=== PATIENT | female | born 1945 | race Caucasian/White ===

== ENCOUNTER 2017-01-22 22:29 | Emergency (ER) | payer OTHER ==
[~2017-01-22] VITALS: Ht 162.6 cm; Wt 65.8 kg
[2017-01-22] MEDS ORDERED: LEVOTHYROXINE25 MCG PO (22:58)
--- NOTE | 2017-01-22 23:07 | ED GI/GU/ABDOMINAL COMPLAINT ---
History of Present Illness General Chief Complaint: Abdominal Pain/Flank Pain Stated Complaint: RIGHT SIDED ABD PAIN Source: patient Exam Limitations: no limitations Vital Signs & Intake/Output Vital Signs & Intake/Output Vital Signs Date Time Temp Pulse Resp B/P Pulse O2 O2 Flow FiO2 Ox Delivery Rate 01/22 2242 98.1 54 18 180/81 98 Room Air ED Intake and Output 01/23 0000 01/22 1200 Intake Total Output Total Balance Patient 145 lb Weight Allergies Coded Allergies: No Known Allergies (01/22/17) Triage Note: RECEIVED 71 YO FEMALE C/O RIGHT LOWER BACK/FLANK AREA PAIN, STARTED 9:30 PM TONITE. VOMITED X 4 SINCE ONSET OF PAIN, DRY HEAVES NOW. Triage Nurses Notes Reviewed? yes ? N Is pt currently ? No HPI: This patient is a 71-year-old who presented to the emergency department accompanied by her for evaluation of right flank pain. The patient reported that the pain began abruptly at 9:30 this evening. She reported a sharp and nonradiating. The pain is been constant since onset with no palliative or provoking factors. The patient denied any abdominal pain. She reported that she vomited multiple times with associated nausea. She denied a history of any kidney stones. She denied any urinary burning, urgency, frequency, or blood in the urine. No constipation or diarrhea. She denied any fevers, chills, chest pain, or difficulty breathing. (KACY MCMILLAN,SCOT) Reconcile Medications Ibuprofen 600 MG TABLET 1 TAB PO TID PRN pain with food Levothyroxine Sodium 25 MCG TABLET 1 TAB PO DAILY THYROID (Reported) Ondansetron (Zofran Odt) 4 MG TAB.RAPDIS 1 TAB SL TID PRN NAUSEA Oxycodone HCl/Acetaminophen (Percocet 5-325 MG Tablet) 5 MG-325 MG TABLET 1 TAB PO 4XDP PRN PAIN sixteen...[id number] Tramadol HCl 50 MG TABLET 1 TAB PO BIDP PRN PAIN (GARTH KUMARI,MARCELA Aguayo) Past History Travel History Traveled to [place] past 21 day No Medical History Any Pertinent Medical History? see below for history Neurological: NONE EENT: NONE Cardiovascular: NONE Respiratory: NONE Gastrointestinal: NONE Hepatic: NONE Renal: NONE Musculoskeletal: NONE Psychiatric: NONE Endocrine: hypothyroidism Blood Disorders: NONE Cancer(s): NONE Surgical History Surgical History: non-contributory Psychosocial History What is your primary language Swiss Tobacco Use: Current Daily Use Daily Tobacco Use Amount/Type: => 5 Cigarettes daily Family History Hx Contributory? No (SCOT WOODRUFF PA-C) Review of Systems Review of Systems Constitutional: Reports: no symptoms. EENTM: Reports: no symptoms. Respiratory: Reports: no symptoms. Cardiovascular: Reports: no symptoms. GI: Reports: see HPI. Genitourinary: Reports: no symptoms. Musculoskeletal: Reports: see HPI. Skin: Reports: no symptoms. Neurological/Psychological: Reports: no symptoms. All Other Systems: Reviewed and Negative (SCOT WOODRUFF PA-C) Physical Exam Physical Exam Gastrointestinal: normal bowel sounds, soft, non-tender, no organomegaly Comments: Well-developed well-nourished person in moderate distress HEENT: Normal EENT exam, head normocephalic, moist mucous membranes Neck: Supple Back: Normal inspection. Normal gait. No CVA tenderness Cardiovascular: Regular rate and rhythm with no murmurs Respiratory: No respiratory distress. Speaking in full sentences Extremity: Normal and equal pulses Neuro: Alert oriented x3, cranial nerves II through XII grossly intact. Skin: No appreciable rash on exposed skin, skin is warm and dry. Psych: Mood and affect is normal Core Measures ACS in differential dx? No Severe Sepsis Present: No Septic Shock Present: No (SCOT WOODRUFF PA-C) Progress Differential Diagnosis: AAA, AMI, appendicitis, biliary colic, bowel obstruction , colon cancer, cholecystitis, diverticulitis, gastritis, hepatitis, ischemic bowel, inflamm bowel dis, kidney stone, ovarian cyst, ovarian torsion, pancreatitis, UTI/pyelo Plan of Care: Orders Procedure Date/time Status LACTIC ACID 01/23 0206 Active CULTURE,URINE 01/22 2306 Active URINALYSIS 01/22 2306 Active LIPASE 01/22 2306 Complete LACTIC ACID 01/22 2306 Complete DIRECT BILIRUBIN 01/22 2306 Complete COMPREHENSIVE METABOLIC PANEL 01/22 2306 Complete CBC WITHOUT DIFFERENTIAL 01/22 2306 Complete AMYLASE 01/22 2306 Complete Laboratory Tests 01/22/173: Anion Gap 10, Estimated GFR 49 L, BUN/Creatinine Ratio 21.8, Glucose 134 H, Lactic Acid 1.6, Calcium 10.4 H, Total Bilirubin 1.1, Direct Bilirubin 0.4, AST 29, ALT 34, Alkaline Phosphatase 81, Total Protein 7.5, Albumin 4.6, Globulin 2.9, Albumin/Globulin Ratio 1.6, Amylase 49, Lipase 107, CBC w Diff NO MAN DIFF REQ, RBC 4.65, MCV 89.9, MCH 29.7, RDW 13.6, MPV 10.2, Gran % 85.6 H, Lymphocytes % 9.7 L, Monocytes % 3.7, Eosinophils % 0.8, Basophils % 0.2, Absolute Granulocytes 8.8 H, Absolute Lymphocytes 1.0 L, Absolute Monocytes 0.4, Absolute Eosinophils 0.1, Absolute Basophils 0, PUBS MCHC 33.0 Microbiology 01/22 2306 URINE ROUT: Urine Culture - ORD Diagnostic Imaging: Viewed by Me: CT Scan. Discussed w/RAD: CT Scan. Radiology Impression: PATIENT: JEFFERSON NIXON PRESENT AGE: 71 PATIENT ACCOUNT NO: [id number] : 44 LOCATION: [facility] ORDERING PHYSICIAN: SCOT WOODRUFF PA-C SERVICE DATE: 01/23/17 EXAM TYPE: CAT - CT ABD & PELVIS W/O IV CONTRAS EXAMINATION: CT ABDOMEN AND PELVIS WITHOUT CONTRAST CLINICAL INFORMATION: Right flank pain COMPARISON: None TECHNIQUE: Multidetector volumetric imaging was performed from the superior aspect of the liver through the pubic symphysis. Sagittal and coronal reformatted images were obtained on the technologist's workstation. DLP: 320.05 mGy-cm FINDINGS: LUNG BASES: The visualized lung bases are unremarkable. LIVER, GALLBLADDER, AND BILIARY TREE: 1.3 cm hypodense lesion anterior left lobe of liver segment 4. Likely hepatic cysts. No intrahepatic bile duct dilatation. The gallbladder is unremarkable with no evidence of radiopaque gallstones, gallbladder wall thickening, or obvious pericholecystic inflammatory changes. PANCREAS: Unremarkable. SPLEEN: Unremarkable. ADRENAL GLANDS: Unremarkable. KIDNEYS AND URETERS: Hypodensity in the right and left parapelvic region of both kidneys. Worse on the right than left. There is an obstructing stone at the right UPJ measuring 4 mm, coronal image 42. There is edema around the renal pelvis and the proximal right ureter to the point of the obstruction. The radiolucency may also be due to parapelvic cysts particularly on the left where there is no renal stone or evidence of dilatation of collecting system. BLADDER: Unremarkable. GASTROINTESTINAL TRACT: No acute change of the bowel. No bowel obstruction. No bowel wall thickening or edema. Moderate volume of stool in colon scattered diverticula of the colon but no diverticulitis. The appendix is not identified. There is no inflammation the mesentery. The small bowel loops are unremarkable. ABDOMINAL WALL: No significant hernia is appreciated. LYMPH NODES: Normal. VASCULAR: Scattered vascular wall calcifications of aorta. No aneurysm. PELVIC VISCERA: Unremarkable. OSSEOUS STRUCTURES: Unremarkable. IMPRESSION: Hydronephrosis of right kidney due to an obstructing 4 mm stone at the right ureteropelvic junction DICTATED BY: RIKY JOHNSON MD DATE/TIME DICTATED:01/23/1719 R D INTERN:SANDIP DATE/TIME TRANSCRIBED:01/23/1719 CONFIDENTIAL, DO NOT COPY WITHOUT APPROPRIATE AUTHORIZATION. <Electronically signed in Other Vendor System> SIGNED BY: RIKY JOHNSON MD 01/23/1727 Initial ED EKG: none Comments: 01/22/2017 11:55:11 PM: DR LIANG IS AT THE PATIENT'S BEDSIDE FOR FACE TO FACE EVALUATION. (SCOT WOODRUFF PA-C) Departure Departure Disposition: HOME OR SELF CARE Condition: Stable Clinical Impression Primary Impression: Nephrolithiasis Referrals: REHAN DIAZ PA-C (PCP/Family) FAVIOLA TODD MD Additional Instructions: Take medication for pain as prescribed. Be sure to stay hydrated. Take Zofran as prescribed for pain. Follow-up with the urologist. Strain your urine. Return for any worsening symptoms or concerns. Departure Forms: Customer Survey General Discharge Information Prescriptions: Current Visit Scripts Tramadol HCl 1 TAB PO BIDP PRN PAIN #10 TAB Ondansetron (Zofran Odt) 1 TAB SL TID PRN NAUSEA #10 TAB (SCOT WOODRUFF PA-C) PA/SENIOR CONTRACT SPECIALIST Co-Sign Statement Statement: ED Attending supervision documentation- [x] I saw and evaluated the patient. I have also reviewed all the pertinent lab results and diagnostic results. I agree with the findings and the plan of care as documented in the PA's/SENIOR CONTRACT SPECIALIST's documentation. [] I have reviewed the ED Record and agree with the PA's/SENIOR CONTRACT SPECIALIST's documentation. [] Additions or exceptions (if any) to the PAs/SENIOR CONTRACT SPECIALIST's note and plan are summarized below: [] (GARTH KUMARI,MARCELA Aguayo)
[2017-01-22 23:35] LABS: ABSOLUTE BASOPHIL COUNT 0 /CUMM (0.0-0.2); ABSOLUTE EOSINOPHIL COUNT 0.1 /CUMM (0.0-0.7); ABSOLUTE GRANULOCYTE CT 8.8 /CUMM (1.4-6.5); ABSOLUTE MONOCYTE COUNT 0.4 /CUMM (0.10-0.60); BASOPHIL % 0.2 % (0.0-2.0); EOSINOPHIL % 0.8 % (0-5); GRANULOCYTE % 85.6 % (42.2-75.2); HEMATOCRIT 41.8 % (37-47); MEAN CORPUSCULAR HGB 29.7 PG (27.0-31.0); MEAN CORPUSCULAR VOLUME 89.9 FL (81.0-99.0); MEAN PLATELET VOLUME 10.2 FL (7.4-10.4); PLATELET COUNT 149 /CUMM (130-400); RBC DISTRIBUTION WIDTH 13.6 % (11.5-14.5); RED BLOOD CELL CT 4.65 /CUMM (4.20-5.40); WHITE BLOOD CELL COUNT 10.3 /CUMM (4.8-10.8)
--- NOTE | 2017-01-23 00:28 | CT SCAN REPORT ---
EXAMINATION: CT ABDOMEN AND PELVIS WITHOUT CONTRAST CLINICAL INFORMATION: Right flank pain COMPARISON: None TECHNIQUE: Multidetector volumetric imaging was performed from the superior aspect of the liver through the pubic symphysis. Sagittal and coronal reformatted images were obtained on the technologist's workstation. DLP: 320.05 mGy-cm FINDINGS: LUNG BASES: The visualized lung bases are unremarkable. LIVER, GALLBLADDER, AND BILIARY TREE: 1.3 cm hypodense lesion anterior left lobe of liver segment 4. Likely hepatic cysts. No intrahepatic bile duct dilatation. The gallbladder is unremarkable with no evidence of radiopaque gallstones, gallbladder wall thickening, or obvious pericholecystic inflammatory changes. PANCREAS: Unremarkable. SPLEEN: Unremarkable. ADRENAL GLANDS: Unremarkable. KIDNEYS AND URETERS: Hypodensity in the right and left parapelvic region of both kidneys. Worse on the right than left. There is an obstructing stone at the right UPJ measuring 4 mm, coronal image 42. There is edema around the renal pelvis and the proximal right ureter to the point of the obstruction. The radiolucency may also be due to parapelvic cysts particularly on the left where there is no renal stone or evidence of dilatation of collecting system. BLADDER: Unremarkable. GASTROINTESTINAL TRACT: No acute change of the bowel. No bowel obstruction. No bowel wall thickening or edema. Moderate volume of stool in colon scattered diverticula of the colon but no diverticulitis. The appendix is not identified. There is no inflammation the mesentery. The small bowel loops are unremarkable. ABDOMINAL WALL: No significant hernia is appreciated. LYMPH NODES: Normal. VASCULAR: Scattered vascular wall calcifications of aorta. No aneurysm. PELVIC VISCERA: Unremarkable. OSSEOUS STRUCTURES: Unremarkable. IMPRESSION: Hydronephrosis of right kidney due to an obstructing 4 mm stone at the right ureteropelvic junction
[2017-01-23] MEDS ORDERED: ZOFRAN ODT4 M1 SL (00:40)
[2017-01-23] MEDS ORDERED: TRAMADOL HCL50 M1 PO (00:40)
[2017-01-23 00:41] VITALS: BP 164/71
== END 2017-01-23 00:58 ==
LOC: ERH 22:29
PROVIDERS: Physician Assistant
DX: N20.0 Calculus of kidney (principal)
CPT/HCPCS: 74176; 87086; 96361; 96374; 96375; J1885; J2405

== ENCOUNTER 2017-01-24 23:09 | Emergency (ER) | payer OTHER ==
[~2017-01-24] VITALS: Ht 162.6 cm; Wt 65.8 kg
[~2017-01-24 23:09] MED LIST: LEVOTHYROXINE25 MCG PO; TRAMADOL HCL50 M1 PO; ZOFRAN ODT4 M1 SL
--- NOTE | 2017-01-25 00:03 | ED GI/GU/ABDOMINAL COMPLAINT ---
History of Present Illness General Chief Complaint: Low Back Pain/Injury Stated Complaint: RIGHT SIDED BACK PAIN Source: patient, family, old records Exam Limitations: no limitations Allergies Coded Allergies: No Known Allergies (01/22/17) Triage Note: PT TO TRIAGE WITH C/O R FLANK PAIN / SINCE 01/29. PT WAS HERE IN ER ON WEDNESDAY, AND WAS DIAGNOSED WITH KIDNEY STONES, AND WAS DC WITH RX FOR TRAMADOL AND UROLOGIST FOLLOW UP. PT HAS AN APPOINTMENT WITH UROLOGIST TOMORROW BUT CAN'T WAIT DUE TO PAIN. LAST TRAMADOL TAKEN AT 9PM. Triage Nurses Notes Reviewed? yes HPI: Patient is a 71-year-old female presents complaining of right flank pain. Patient was diagnosed with a right UVJ stone on Wednesday. Patient reports that she was seen in the emergency department, had CT scan and was discharged with Zofran and tramadol. Pain had been well controlled Wednesday evening, Wednesday and earlier today. This evening pain sudden onset of worsening. Pain is currently a sharp pain 10 out of 10, no exacerbating or alleviating factors. No improvement with tramadol. Mild associated nausea. Patient denies fevers, chills, difficulty urinating. (WILEY MORENO) Vital Signs & Intake/Output Vital Signs & Intake/Output Vital Signs Date Time Temp Pulse Resp B/P Pulse O2 O2 Flow FiO2 Ox Delivery Rate 01/25 0135 96.8 55 18 136/64 95 Room Air 01/24 2327 98.1 55 18 173/85 96 Room Air ED Intake and Output 01/25 0000 01/24 1200 Intake Total Output Total Balance Patient 145 lb Weight Reconcile Medications Ibuprofen 600 MG TABLET 1 TAB PO TID PRN pain with food Levothyroxine Sodium 25 MCG TABLET 1 TAB PO DAILY THYROID (Reported) Ondansetron (Zofran Odt) 4 MG TAB.RAPDIS 1 TAB SL TID PRN NAUSEA Oxycodone HCl/Acetaminophen (Percocet 5-325 MG Tablet) 5 MG-325 MG TABLET 1 TAB PO 4XDP PRN PAIN sixteen...[id number] Tramadol HCl 50 MG TABLET 1 TAB PO BIDP PRN PAIN Triage Nurses Notes Reviewed? yes ? n Is pt currently ? No Duration: day(s): Quality/Severity: cramping Location: left lower quadrant Radiation: back Activities at Onset: none Prior Abdominal Problems: similar symptoms Modifying Factors: Improves With: rest. Associated Symptoms: abdominal pain (DANIEL AYALA MD) Past History Travel History Traveled to [place] past 21 day No Medical History Any Pertinent Medical History? see below for history Neurological: NONE EENT: NONE Cardiovascular: NONE Respiratory: NONE Gastrointestinal: NONE Hepatic: NONE Renal: nephrolithiasis Musculoskeletal: NONE Psychiatric: NONE Endocrine: hypothyroidism Blood Disorders: NONE Cancer(s): NONE Surgical History Surgical History: cholecystectomy Psychosocial History What is your primary language Iranian Tobacco Use: Never used Family History Hx Contributory? No (WILEY MORENO) Review of Systems Review of Systems Constitutional: Denies: chills, fever. EENTM: Reports: no symptoms. Respiratory: Denies: cough, short of breath. Cardiovascular: Denies: chest pain. GI: Reports: see HPI, abdominal pain (right flank), nausea. Genitourinary: Reports: see HPI. Denies: dysuria, frequency, urgency. Musculoskeletal: Reports: back pain. Skin: Reports: no symptoms. Neurological/Psychological: Reports: no symptoms. Hematologic/Endocrine: Reports: no symptoms. Immunologic/Allergic: Reports: no symptoms. (WILEY MORENO) Physical Exam Physical Exam General Appearance: well developed/nourished, alert, awake Head: atraumatic, normal appearance Eyes: Bilateral: normal appearance, PERRL, EOMI. Ears, Nose, Throat, Mouth: hearing grossly normal, moist mucous membrane Neck: normal inspection, supple, full range of motion Respiratory: normal breath sounds, chest non-tender, no respiratory distress, lungs clear Cardiovascular: regular rate/rhythm Gastrointestinal: normal bowel sounds, soft, non-tender Back: normal inspection, normal range of motion, no CVA tenderness Extremities: normal range of motion Neurologic/Psych: no motor/sensory deficits, awake, alert, oriented x 3, normal gait, normal mood/affect Skin: intact, normal color, warm/dry (WILEY MORENO) Core Measures ACS in differential dx? No Severe Sepsis Present: No Septic Shock Present: No (DANIEL AYALA MD) Progress Hand-Off Endorsed To: DANIEL AYALA MD Endorsed Time: 58 Pending: labs (WILEY MORENO) Differential Diagnosis: kidney stone, UTI/pyelo Plan of Care: Orders Procedure Date/time Status URINALYSIS 01/25 6 Complete CBC WITHOUT DIFFERENTIAL 01/25 6 Complete BASIC METABOLIC PANEL 01/25 6 Complete Laboratory Tests 01/25/17 0049: Urinalysis MOD H, Urine Color BROWN H, Urine Clarity CLDY H, Urine pH 5.0, Ur Specific [place] >= 1.030, Urine Protein 30 H, Urine Ketones 15 H, Urine Nitrite NEG, Urine Bilirubin NEG, Urine Urobilinogen 0.2, Ur Leukocyte Esterase NEG, Ur Microscopic SEDIMENT EXAMINED, Urine RBC PACKD H, Urine WBC 1-3 H, Ur Epithelial Cells MANY H, Urine Bacteria FEW H, Urine Mucus FEW, Urine Hemoglobin LARGE H, Urine Glucose NEG 01/25/17 0013: Anion Gap 10, Estimated GFR 55 L, BUN/Creatinine Ratio 19.0, Glucose 117 H, Calcium 9.8, CBC w Diff NO MAN DIFF REQ, RBC 4.49, MCV 89.4, MCH 30.0, RDW 13.6, MPV 11.1 H, Gran % 83.5 H, Lymphocytes % 11.3 L, Monocytes % 4.2, Eosinophils % 0.9, Basophils % 0.1, Absolute Granulocytes 9.1 H, Absolute Lymphocytes 1.2, Absolute Monocytes 0.5, Absolute Eosinophils 0.1, Absolute Basophils 0, PUBS MCHC 33.6 Previous records reviewed. Further imaging deferred upon initial evaluation. Signed out to Dr. Ayala at shift change with labs pending. (WILEY MORENO) Initial ED EKG: none (SABRINA KUMARI,DANIEL Simon) Departure Departure Condition: Stable Clinical Impression Primary Impression: Renal colic on right side Referrals: EMILY MCMILLAN,REHAN Bruce (PCP/Family) Departure Forms: Customer Survey General Discharge Information (WILEY MORENO) Departure Disposition: HOME OR SELF CARE Prescriptions: Current Visit Scripts Oxycodone HCl/Acetaminophen (Percocet 5-325 MG Tablet) 1 TAB PO 4XDP PRN PAIN #16 TAB sixteen...[id number] Ibuprofen 1 TAB PO TID PRN pain #30 TAB Ref 1 with food Comments 01/25/17, 1:51am... pt feeling better.... labs benign... pt to follow up with uroloy later today. PA/TOOL CRIB ATTENDANT Co-Sign Statement Statement: ED Attending supervision documentation- [x] I saw and evaluated the patient. I have also reviewed all the pertinent lab results and diagnostic results. I agree with the findings and the plan of care as documented in the PA's/TOOL CRIB ATTENDANT's documentation. [] I have reviewed the ED Record and agree with the PA's/TOOL CRIB ATTENDANT's documentation. [] Additions or exceptions (if any) to the PAs/TOOL CRIB ATTENDANT's note and plan are summarized below: [] (SABRINA KUMARI,DANIEL Simon)
[2017-01-25 00:35] LABS: ABSOLUTE BASOPHIL COUNT 0 /CUMM (0.0-0.2); ABSOLUTE EOSINOPHIL COUNT 0.1 /CUMM (0.0-0.7); ABSOLUTE GRANULOCYTE CT 9.1 /CUMM (1.4-6.5); ABSOLUTE LYMPH COUNT 1.2 /CUMM (1.2-3.4); ABSOLUTE MONOCYTE COUNT 0.5 /CUMM (0.10-0.60); BASOPHIL % 0.1 % (0.0-2.0); EOSINOPHIL % 0.9 % (0-5); GRANULOCYTE % 83.5 % (42.2-75.2); HEMATOCRIT 40.1 % (37-47); MEAN CORPUSCULAR HGB CONC 33.6 G/DL (33.0-37.0); MEAN CORPUSCULAR VOLUME 89.4 FL (81.0-99.0); MEAN PLATELET VOLUME 11.1 FL (7.4-10.4); PLATELET COUNT 138 /CUMM (130-400); RBC DISTRIBUTION WIDTH 13.6 % (11.5-14.5); RED BLOOD CELL CT 4.49 /CUMM (4.20-5.40); WHITE BLOOD CELL COUNT 10.8 /CUMM (4.8-10.8)
[2017-01-25 01:35] VITALS: BP 136/64
[2017-01-25] MEDS ORDERED: PERCOCET 5-3251 EACH PO (01:47)
[2017-01-25] MEDS ORDERED: IBUPROFEN600 M1 PO (01:47)
== END 2017-01-25 01:57 ==
LOC: ERH 23:09
PROVIDERS: Physician Assistant
DX: N23 Unspecified renal colic (principal)
CPT/HCPCS: 81001; 96374; 96375; J1885

== ENCOUNTER → 2017-01-26 | Day surgery (SDC) | payer OTHER ==
[~2017-01-26] MED LIST changes: +IBUPROFEN600 M1 PO; +PERCOCET 5-3251 EACH PO
--- NOTE | 2017-01-26 16:15 | RADIOLOGY REPORT ---
EXAMINATION: XR ABDOMEN CLINICAL INDICATION: 71-year-old female with right hydronephrosis caused by obstructing stone of the ureteropelvic junction. Right ureteroscopy and retrograde examination performed in operating room. COMPARISON: CT of abdomen pelvis from 01/23/2017 TECHNIQUE: C-arm fluoroscopic imaging was utilized within the operating room by Dr. Mccullough. Please refer to the operative report. FLUOROSCOPY TIME: 3 minutes. Number OF IMAGES: 14. FINDINGS: Fluoroscopic images were acquired during performance of right retrograde ureterography and ureteroscopy. Please refer to the operative report. A small filling defect in the proximal ureter located just distal to the ureteropelvic junction corresponds to the known ureteral calculus. There was some contrast extravasation from an upper pole calyx. No pelvocaliectasis. IMPRESSION: Fluoroscopic imaging assistance was provided to Dr. Mccullough within the operating room. Please refer to the operative report.
--- NOTE | 2017-01-26 16:48 | Operative Report ---
Operative/Inv Procedure Report Surgery Date: 01/26/17 Name of Procedure: cystoscopy: LASER TURP, converted to standard TURP Pre-Operative Diagnosis: BPH-urinary retention Post-Operative Diagnosis: same Estimated Blood Loss: less than 50ml Surgeon/Biodiesel Process Control Technician: FAVIOLA TODD MD Anesthesia: laryngeal mask airway Drains: 22 fr. 3-way vazquez with NS CBI Specimens: prostate chips Complications: none Operative Indication: Urinary retention with failed VT X2 on max. prostate meds. Operative/Procedure Note Note: The patient was taken to the operating room and placed on the OR table in supine position. Timeout was performed, with the patient awake, in order to confirm the patient's correct identity, procedure, laterality, antibiotics, and other pertinent saman-operative information. After adequate anesthesia and antibiotics , the indwelling vaqzuez was removed. The patient was then draped and prepped in the usual surgical fashion. He was positioned comfortably and securely in Yellow-Fin stirrups. A lubricated 22 Guinean cystoscope sheath with 30 angle lens was inserted under direct visualization. On entering the prostatic urethra, the prostate gland was noted to have significantly obstructing bilateral prostate lobes, and a small- moderate sized middle lobe. The veru-montanum was noted to be normal. Upon entering the bladder, through a narrowed bladder neck, the bladder was noted to be trabeculated with multiple cellules. There was no evidence of bladder tumor, nor stones. Both ureteral orifices were noted to be in their orthotopic position with clear reflux bilaterally. The bladder was left full, and the cystoscope was removed. There was no drainage of fluid despite crede manuver. A 26 Guinean laser resectoscope sheath was then inserted into the penis, with a 30 angle lens, under direct visualization. Maintaining the cystoscope at the level of the veru-montanum, the diode laser fiber was then inserted through the scope and visualized directly in front of the laser resectoscope sheath, in proper orientation. Photo-vaporization of the left lobe was performed in order to open a wide prostatic urethral channel on the left side. The resection proceeded from the 2-6 o'clock position, obliterating the glandular tissue, but not reaching or penetrating the capsule. Laser TURP was performed in a sweeping manner in order to get good vaporization of the prostate lobe, and good hemostasis. The resection of the left apical lobe was haulted at the level of the vera montanum, so as to preserve the external sphincter. Once the left lobe was resected in a satisfactory manner, the right lobe of the prostate was then photo vaporized in the same manner from the 10:00 to the 6 o'clock position. Once again the resection of the right lobe was haulted at the level of the veru- montanum. The middle lobe was then photo vaporized, with the diode laser, in order to further open the prostatic channel adequately. Once hemostasis and an open channel was confirmed, the resectoscope was then reinserted into the bladder. The bladder was again thoroughly and systematically surveyed in order to confirm no evidence of injury to the bladder or orifices. The bladder was copiously irrigated in order to us to ensure no foreign body was in the bladder. The bladder was left full and the resectoscope was then removed under direct visualization. The patient was noted to have no spontaneous drainage once again with crede and therefore decided to remove the apical prostate tissue using the standard resectoscope for more precise tissue removal in this area. A 26 Guinean standard resectoscope sheath with a 30 angle lens and the 24 Guinean loop was inserted into the urethra, and then advanced into the bladder without difficulty. The apical prostate tissue was noted to be obstructive. The resectocope was then retracted to the level of the apical prostate. Using coag current, spot cauterization was performed in order to achieve good hemostasis of the prostate. The bladder was then re-entered via the resectoscope, and the prostate chips were irrigated out using tumey evacuation. Once all the prostate chips were removed, the bladder was re-evaluating and noted to have no untoward injury. Additionally, the prostate channel was noted to have good hemostasis, with a wide open channel. The resectoscope was removed with the bladder full. A 22 Guinean three-way Vazquez catheter was inserted without difficulty draining clear fluid. The bladder was again copiously irrigated via the vazquez to ensure patency/ The 30 mL balloon was then filled, and continuous bladder irrigation with normal saline was initiated. Clear and easy drainage of NS from the main port was confirmed with CBI. All sponge, needle, and instrument count were correct at the end of the case. A 20 Guinean Vazquez catheter was then inserted and drained clear fluid prior to inflating the 10 mL balloon. The Vazquez catheter was attached to a drainage bag. The patient tolerated the procedure well and was taken to the recovery room in satisfactory condition, with Rx for antibiotics, and pain-meds. Findings: large prostate with residual apical prostate tissue requiring standard turp. Discharge Disposition: PACU CC: FAVIOLA TODD MD
--- NOTE | 2017-01-28 13:04 | Operative Report ---
Operative/Inv Procedure Report Surgery Date: 01/26/17 Name of Procedure: Cystoscopy. Right flexible ureteroscopy with laser standby, basket extraction of ureter stone. Retrograde pyelogram with fluoroscopy. Pre-Operative Diagnosis: Right obstructing ureter stone with hydronephrosis. Post-Operative Diagnosis: Right obstructing ureter stone with hydronephrosis. Estimated Blood Loss: less than 50ml Surgeon/[employer]: FAVIOLA TODD MD Anesthesia: laryngeal mask airway Specimens: Right ureter stone Complications: None Operative/Procedure Note Note: The patient was taken to the operating room and placed on the OR table in supine position. Timeout was performed in order to confirm correct patient, procedure, laterality, and other pertinent information with pt. awake. After adequate anesthesia, and antibiotics, the patient was then placed in yellow-fin lithotomy stirrups, draped and prepped in the usual surgical fashion. A 22 Portuguese cystoscope sheath with 30 angle lens was inserted into the bladder without difficulty. Upon entering the bladder, the bladder was noted to be free of tumor , free of stone. Both orifices were in their orthotopic position. The right ureter orifice was intubated with an 8fr cone-tip catheter and a retrograde pyelogram with fluoroscopy was performed. A 5 mm filling defect at the proximal ureter was seen, with proximal hydronephrosis. The cone-tipped catheter was removed, followed by insertion of a 0.035 Glidewire into the right ureter orifice, which was advanced into the right renal pelvis without difficulty. Placement of the wire was confirmed on fluoroscopy. Leaving the Glidewire in place, and the flexible ureteroscope was inserted over the gluidewire into the bladder. The flexible ureteroscope was advanced up the right ureter with fluoroscopy visualization, following the gluidewire. Pyeloscopy and calyxoscopy, of the upper, middle, and lower poles reveal no evidence of tumor, no evidence of stone. Additionally, no stones, nor any tumor was visualized in the renal pelvis. The entire length of the ureter was also visualized carefully on the way out, and a 5 mm stone was visualized at the proximal ureter. The holmium YAG laser was activated and ready for laser lithotripsy. The size of the stone looked amenable to basket extraction, therefore the 5 Portuguese 0 tip basket was introduced into the flexible ureteroscope. Under direct visualization the basket was deployed, capturing the stone securely. The flexible ureteroscope along with the basket and stone were extracted slowly and easily from the right ureter. The stone was then sent to pathology. At this point the laser was disengaged. The cystoscope was reinserted into the bladder, and a follow-up retrograde pyelogram was performed. Contrast material from the right renal pelvis and ureter drained within 2 minutes time. The patient tolerated the procedure well, and was then taken to the recovery room in satisfactory condition. Discharge Disposition: PACU CC: FAVIOLA TODD MD
== END ==
LOC: STS 01:59
DX: N13.2 Hydronephrosis with renal and ureteral calculous obstruction (principal); E03.9 Hypothyroidism, unspecified
CPT/HCPCS: 74000; 82355; 93005; 93010; J0131; J2250